=== PATIENT | male | born 1965 | race Caucasian/White ===

== ENCOUNTER 2017-08-13 06:04 | Emergency (ER) | payer OTHER ==
[~2017-08-13] VITALS: Ht 185.4 cm; Wt 136.0 kg
[~2017-08-13 06:04] MED LIST: ADDERALL20 MG PO; ATIVAN0.5 MG PO; AVAPRO75 MG PO; Advair HFA 115/21 IH; BENICAR20 MG PO; CARAFATE100 MG/ML PO; CLONIDINE HCL0.1 MG PO; Claritin,Alavart PO; Combivent IH; DESYREL100 MG PO; DOLOPHINE HCL10 MG PO; ELAVIL25 MG PO; FLEXERIL5 MG PO; FLONASE16 G1 BOTH NARES; FOLIC ACID1 MG PO; Flonase BOTH NARES; K-DUR20 MEQ PO; LANTUS 10100 UNITS/ SC; LANTUS100 UNIT/1 SQ; LASIX40 MG; LEVOTHROID100 MCG PO; METHADONE HCL40 MG PO; METHADONE10 MG PO; NEURONTIN300 MG PO; OXYCODONE HCL15 MG PO; OXYCODONE HCL30 MG PO; OXYCODONE15 MG PO; OXYCODONE30 MG PO; Omnicef PO; PEPCID40 MG PO; PRILOSEC20 MG; PRILOSEC20 MG PO; PRILOSEC40 MG PO; PRINIVIL10 MG PO; PROMETHAZINE HC50 M1 PO; REGLAN10 MG PO; REMERON15 M2 PO; Sudafed PO; TYLENOL EXTRA500 MG PO; TYLENOL REGULA325 MG PO; ZOLOFT25 MG PO; Zestril,Prinivil PO; predniSONE PO
[2017-08-13 06:29] LABS: POINT-OF-CARE METER ID UU13113747
[2017-08-13 06:41] LABS: EOSINOPHIL (%) 2.8 % (0-5); EOSINOPHIL COUNT 0.2 K/uL (0-0.3); HEMATOCRIT 32.9 % (38.0-50.0); IMMATURE GRANULOCYTE (%) 0.6 % (0.0-0.7); INSTRUMENT ABS NEUTROPHIL CT 4.3 K/uL; LYMPHOCYTE COUNT 0.5 K/uL (1.0-2.8); MCH 19.3 PG (29.0-34.0); MCHC 31.6 G/DL (30.0-36.0); MCV 61.2 FL (86-99); MONOCYTE (%) 6.3 % (3-12); MONOCYTE COUNT 0.3 K/uL (0-0.8); NEUTROPHIL (%) 80.9 % (45-76); NEUTROPHIL COUNT 4.3 K/uL (1.8-6.4); PLATELET COUNT 95 K/uL (156-360); RBC DIS.WIDTH-CV 15.7 % (11.8-14.6); RBC DIS.WIDTH-SD 33.2 % (39-53); RED BLOOD COUNT 5.38 M/uL (4.00-5.50); WHITE BLOOD COUNT 5.4 K/uL (4.1-10.2)
[2017-08-13 06:46] LABS: CHLORIDE 98 mEq/L (99-109); POTASSIUM 3.3 mEq/L (3.7-5.4); SODIUM 133 mEq/L (136-147)
[2017-08-13 06:49] LABS: GLUCOSE 346 mg/dL (70-99)
[2017-08-13 06:50] LABS: ANION GAP 11 MEQ/L (2-14)
[2017-08-13 06:51] LABS: TOTAL BILIRUBIN 1.7 mg/dL (0.0-1.0)
[2017-08-13 06:52] LABS: ALKALINE PHOSPHATASE 257 IU/L (3-129); GFR ESTIMATE (CALCULATED) > 59 mL/min/ (58.99-99999)
[2017-08-13 06:53] LABS: UREA NITROGEN (BUN) 10 mg/dL (9-23)
[2017-08-13 07:25] VITALS: BP 145/89
== END 2017-08-13 07:39 | disposition left against medical advice (07) ==
LOC: EME → EDBD 06:04 → EME 07:39
PROVIDERS: Emergency Medicine
DX: R41.0 Disorientation, unspecified (principal); S01.512A Laceration without foreign body of oral cavity, initial encounter; X58.XXXA Exposure to other specified factors, initial encounter; R00.0 Tachycardia, unspecified; I10 Essential (primary) hypertension; J44.9 Chronic obstructive pulmonary disease, unspecified; E11.9 Type 2 diabetes mellitus without complications; Z79.4 Long term (current) use of insulin; Z87.891 Personal history of nicotine dependence; Z53.20 Procedure and treatment not carried out because of patient's decision for unspecified reasons
CPT/HCPCS: 71010; 80053; 81003; 82140; 82948; 85025; 87040; 93005; 99281; 99284